=== PATIENT | female | born 1975 | race Hispanic/Latino ===

== ENCOUNTER 2017-11-18 02:45 | Emergency (ER) | payer MEDICAID ==
[2017-11-18 03:21] VITALS: O2SAT 100
[2017-11-18] MEDS ORDERED: Sodium Chloride 0.9% 1,000 ML IV STA (03:41)
--- NOTE | 2017-11-18 03:46 | ED PDOC ---
HPI: Abdomen Time Seen by Provider: 11/18/17 03:22 Chief Complaint (Nursing): Abdominal Pain Chief Complaint (Provider): abdominal pain History Per: Patient History/Exam Limitations: no limitations Onset/Duration Of Symptoms: Days (1) Current Symptoms Are (Timing): Still Present Location Of Pain/Discomfort: RLQ, LLQ, Suprapubic Quality Of Discomfort: Cramping Associated Symptoms: Nausea Additional Complaint(s): 41 y/o female presents for evaluation of lower abdominal cramping x 1 day. Patient states she found out she was 2 weeks ago with a home test; went to a clinic 2 days ago when pain started and had an ultrasound which showed twin that was not viable, measuring approximately 9 weeks. Patient states last night pain intensified, with associated headache and nausea. States headache improved after Excedrin. Patient states she called the "[employer] " hotline and was advised to come to ED for testing. Denies fever, dizziness, vomiting, chest pain, shortness of breath, palpitations, vaginal bleeding/discharge. Patient also states she may have a UTI as her urine has a foul smell. A3 Past Medical History Reviewed: Historical Data, Nursing Documentation, Vital Signs Vital Signs: Last Vital Signs Temp 98.5 F 11/18/17 03:14 Pulse 85 11/18/17 03:14 Resp 16 11/18/17 03:14 BP 114/73 11/18/17 03:14 Pulse Ox 100 11/18/17 05:44 - Medical History PMH: No Chronic Diseases - Surgical History Surgical History: - Family History Family History: States: No Known Family Hx - Home Medications Home Medications: Ambulatory Orders Medication Instructions Recorded Nitrofurantoin Macrocrystals 100 mg PO BID #13 cap 11/18/17 [Macrobid] - Allergies Allergies/Adverse Reactions: Allergies Allergy/AdvReac Type Severity Reaction Status Date / Time No Known Allergies Allergy Verified 11/18/17 03:21 Review of Systems ROS Statement: Except As Marked, All Systems Reviewed And Found Negative Genitourinary Female: Positive for: Pelvic Pain Physical Exam - Reviewed Nursing Documentation Reviewed: Yes Vital Signs Reviewed: Yes - Physical Exam Appears: Positive for: Well, Non-toxic, No Acute Distress Head Exam: Positive for: ATRAUMATIC, NORMAL INSPECTION, NORMOCEPHALIC Skin: Positive for: Normal Color Eye Exam: Positive for: Normal appearance ENT: Positive for: Normal ENT Inspection Cardiovascular/Chest: Positive for: Regular Rate, Rhythm Respiratory: Positive for: Normal Breath Sounds Gastrointestinal/Abdominal: Positive for: Bowel Sounds, Soft, Tenderness (rlq, suprapubic, llq) Pelvic Exam: Positive for: External Exam Normal, No Cerv. Motion Tender, Other ( exam button cutter Gisselle Padilla RN). Negative for: Active Bleeding, Blood, Cervicitis Back: Positive for: Normal Inspection Extremity: Positive for: Normal ROM Neurologic/Psych: Positive for: Alert, Oriented (x3) - Laboratory Results Result Diagrams: 11/18/17 04:05 11/18/17 04:05 - ECG O2 Sat by Pulse Oximetry: 100 - Progress ED Course And Treament: labs, urine, TV OB u/s, IVF, PO tylenol Macrobid PO given for UTI Disposition - Clinical Impression Clinical Impression: UTI (urinary tract infection), Abdominal pain in , Headache - Disposition Disposition Time: 06:00 Condition: STABLE Prescriptions: Nitrofurantoin Macrocrystals [Macrobid] 100 mg PO BID #13 cap Patient Signed Over To: Wero Gee Handoff Comments: pending u/s, re-eval
[2017-11-18 04:24] LABS: BASO % 0.4 % (0.0-2.0); EOS # 0.1 K/uL (0.0-0.7); EOS % 1.9 % (0.0-4.0); HEMOGLOBIN 11.7 g/dL (12.0-16.0); LYMPH # 1.3 K/uL (1.0-4.3); LYMPH % 23.2 % (20.0-40.0); MEAN CELL VOLUME 90.5 fl (81.0-99.0); MEAN CORPUSCULAR HEMOGLOBIN 32.3 pg (27.0-31.0); MEAN CORPUSCULAR HGB CONC 35.7 g/dL (33.0-37.0); MEAN PLATELET VOLUME 7.7 fl (7.2-11.7); MONO # 0.5 K/uL (0.0-0.8); MONO % 9.1 % (0.0-10.0); NEUT # 3.7 K/uL (1.8-7.0); NEUT % 65.4 % (50.0-75.0); NRBC % 0.1 % (0.0-0.0); RBC 3.62 Mil/uL (3.80-5.20); RED CELL DISTRIBUTION WIDTH 13.2 % (11.5-14.5); WHITE BLOOD COUNT 5.7 K/uL (4.8-10.8)
[2017-11-18 04:27] LABS: SQUAMOUS EPITHIAL 8 /hpf (0-5); URINE BACTERIA RARE (<OCC); URINE BILIRUBIN NEGATIVE (NEGATIVE); URINE BLOOD SMALL (NEGATIVE); URINE CLARITY CLOUDY (Clear); URINE COLOR AMBER (YELLOW); URINE GLUCOSE (UA) NEG (Normal); URINE LEUKOCYTE ESTERASE LARGE Leu/uL (Negative); URINE PROTEIN 100 mg/dL (NEGATIVE)
[2017-11-18 04:33] LABS: ALB/GLOB RATIO 1.5 (1.0-2.1); ALBUMIN 4.2 g/dL (3.5-5.0); ALT/SGPT 32 U/L (9-52); AST/SGOT 41 U/L (14-36); BLOOD UREA NITROGEN 11 mg/dl (7-17); CALCIUM 9.5 mg/dL (8.4-10.2); GFR AFRICAN-AMERICAN > 60; GFR NON-AFRICAN AMERICAN > 60
--- NOTE | 2017-11-18 07:04 | ED PDOC ---
- Laboratory Results Result Diagrams: 11/18/17 04:05 11/18/17 04:05 - ECG O2 Sat by Pulse Oximetry: 100 Medical Decision Making Medical Decision Making: received pending US and re-eval. Discussed w Dr Paris OB electronic maintenance supervisor, US results and dimensions discussed, recommends followup in office to determine falling Beta as given size intervention not currently recommended . Results d/w patient. Given followup Dr Duenas as patient initially requested Dr Duenas although has not yet seen. Accession No. 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 COMPARISON: None available. TECHNIQUE: Transvaginal sonography of was performed with transverse and longitudinal projections submitted for interpretation. No prior comparison available. Last which appears reported 09/18/2017 suggesting of 8 weeks 5 days by dates alone. FINDINGS: UTERUS: Measures 11.4 x 9.4 x 6.2 cm. No definite myometrial mass is demonstrated. An apparent twin intrauterine gestation is appreciate which appears to be dichorionic/ diamniotic type. No pole, yolk sac or or amniotic membrane is seen within gestational sac A which measures a mean diameter of 3.59 cm corresponding to 8 weeks 6 day gestational age. Gestational sac B measures a mean 1.26 cm correspond to 5 weeks 3 day gestational age. Yolk sac and pole are identified measuring 0.2 cm and 0.54 cm average at twin B with mean crown-rump length indicating 5 weeks 3 days ultrasound age as well. No cardiac activity is detected within twin B pole. No definite decidual related hemorrhage appreciable. Mean sac diameter referred gestational sac A is concordant with LMP derived dates and discordant with gestational sac B. the overall pattern suggests failure of both gestations , compatible with the clinical history. CERVIX: 4.7 cm, closed internal os. No cervical mass appreciable. RIGHT OVARY: Measures 3.2 x 3.0 x 2.1 cm. No solid mass. Normal flow. Complex cyst is seen in the right ovary measuring 1.6 x 2.2 x 1.4 cm potentially representing a corpus luteum cyst. LEFT OVARY: Measures 3.2 x 3.1 x 1.6 cm. Possible collapsing follicle is seen measuring 1.5 x 1.5 x 1.2 cm with a calcified focus measure 1.1 x 1.1 x 1.1 cm, possibly representing a small dermoid lesion. Normal flow. FREE FLUID: No significant free fluid noted. OTHER FINDINGS: None. IMPRESSION: 1. demise in both of apparent twin intrauterine gestations as discussed above. See details under uterus section above. Clinical correlation and sonographic follow-up are recommended. 2. Probable corpus luteum cyst right ovary with crenating follicle left ovary. A tiny 1.1 cm dermoid lesion is suggests at the left ovary as well. Disposition - Clinical Impression Clinical Impression: UTI (urinary tract infection), Abdominal pain in , Headache, Threatened - POA Present On Arrival: None - Disposition Disposition: Routine/Home Disposition Time: 11:47 Condition: STABLE Additional Instructions: Your case was discussed with Dr Paris on-call Smog Technician who recommends you be seen in office for repeat bloodwork prior to any intervention on possible demise. Return to ER for any worse or new symptoms, fever, pain, bleeding or any concern. Prescriptions: Nitrofurantoin Macrocrystals [Macrobid] 100 mg PO BID #13 cap Instructions: Urinary Tract Infections in Adults, Threatened Miscarriage (DC) Forms: [employer] (Nauruan)
[2017-11-18 08:07] VITALS: TEMP 97.9
--- NOTE | 2017-11-18 11:13 | US ---
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 COMPARISON: None available. TECHNIQUE: Transvaginal sonography of was performed with transverse and longitudinal projections submitted for interpretation. No prior comparison available. Last which appears reported 09/18/2017 suggesting of 8 weeks 5 days by dates alone. FINDINGS: UTERUS: Measures 11.4 x 9.4 x 6.2 cm. No definite myometrial mass is demonstrated. An apparent twin intrauterine gestation is appreciate which appears to be dichorionic/ diamniotic type. No pole, yolk sac or or amniotic membrane is seen within gestational sac A which measures a mean diameter of 3.59 cm corresponding to 8 weeks 6 day gestational age. Gestational sac B measures a mean 1.26 cm correspond to 5 weeks 3 day gestational age. Yolk sac and pole are identified measuring 0.2 cm and 0.54 cm average at twin B with mean crown-rump length indicating 5 weeks 3 days ultrasound age as well. No cardiac activity is detected within twin B pole. No definite decidual related hemorrhage appreciable. Mean sac diameter referred gestational sac A is concordant with LMP derived dates and discordant with gestational sac B. the overall pattern suggests failure of both gestations, compatible with the clinical history. CERVIX: 4.7 cm, closed internal os. No cervical mass appreciable. RIGHT OVARY: Measures 3.2 x 3.0 x 2.1 cm. No solid mass. Normal flow. Complex cyst is seen in the right ovary measuring 1.6 x 2.2 x 1.4 cm potentially representing a corpus luteum cyst. LEFT OVARY: Measures 3.2 x 3.1 x 1.6 cm. Possible collapsing follicle is seen measuring 1.5 x 1.5 x 1.2 cm with a calcified focus measure 1.1 x 1.1 x 1.1 cm, possibly representing a small dermoid lesion. Normal flow. FREE FLUID: No significant free fluid noted. OTHER FINDINGS: None. IMPRESSION: 1. demise in both of apparent twin intrauterine gestations as discussed above. See details under uterus section above. Clinical correlation and sonographic follow-up are recommended. 2. Probable corpus luteum cyst right ovary with crenating follicle left ovary. A tiny 1.1 cm dermoid lesion is suggests at the left ovary as well.
[2017-11-18 11:48] VITALS: BP 107/59; PULSE 81; RESP 14
== END 2017-11-18 12:19 | disposition home or self-care (01) ==
LOC: H.ER 02:45
DX: O20.0 Threatened abortion (principal); O23.40 Unspecified infection of urinary tract in pregnancy, unspecified trimester; R51 Headache
CPT/HCPCS: 76817; 80053; 81003; 81025; 84702; 85025; 86850; 86900; 87086; 87181; 99284; J7030

== ENCOUNTER 2017-11-24 12:37 | Emergency (ER) | payer MEDICAID ==
--- NOTE | 2017-11-24 13:21 | ED PDOC ---
HPI: Abdomen Time Seen by Provider: 11/24/17 13:00 Chief Complaint (Nursing): Abdominal Pain Chief Complaint (Provider): Abdominal Pain History Per: Patient History/Exam Limitations: no limitations Additional Complaint(s): Patient is a 41 y/o female who is presenting to the ED complaining of abdominal pain with associated nausea and vomiting. Patient describes the pain as a sharp cramping sensation. She was seen last week and is potentially now; her US however didn't detect a pulse. Patient was told to follow up with PMD but she has not due to insurance. She was given prescription for Macrobid and states that she is still taking it. Patient reports feeling shaky, subjective fever, sweaty, dizzy, and has a throat pain she describes as "tight." She denies chest pain, back pain, headache, vaginal bleeding, or leg swelling. Abnormal Vaginal Bleeding: No : 7 Para: 3 Miscarriage: 3 Past Medical History Reviewed: Historical Data, Nursing Documentation, Vital Signs Vital Signs: Last Vital Signs Temp 97.8 F 11/24/17 12:42 Pulse 81 11/24/17 12:42 Resp 18 11/24/17 12:42 BP 115/71 11/24/17 12:42 Pulse Ox 99 11/24/17 15:39 - Medical History PMH: No Chronic Diseases - Surgical History Surgical History: - Family History Family History: States: Unknown Family Hx - Social History Current smoker - smoking cessation education provided: Yes (trying to quit) Alcohol: None - Home Medications Home Medications: Ambulatory Orders Medication Instructions Recorded Nitrofurantoin Macrocrystals 100 mg PO BID #13 cap 11/18/17 [Macrobid] - Allergies Allergies/Adverse Reactions: Allergies Allergy/AdvReac Type Severity Reaction Status Date / Time No Known Allergies Allergy Verified 11/24/17 12:43 Review of Systems ROS Statement: Except As Marked, All Systems Reviewed And Found Negative Constitutional: Positive for: Fever (subjective), Sweats ENT: Positive for: Throat Pain (tightness) Cardiovascular: Negative for: Chest Pain Gastrointestinal: Positive for: Nausea, Vomiting, Abdominal Pain (cramping) Musculoskeletal: Negative for: Back Pain Neurological: Positive for: Dizziness. Negative for: Headache Physical Exam - Reviewed Nursing Documentation Reviewed: Yes Vital Signs Reviewed: Yes - Physical Exam Appears: Positive for: Non-toxic, No Acute Distress Head Exam: Positive for: ATRAUMATIC Skin: Positive for: Normal Color, Warm, Dry Eye Exam: Positive for: Normal appearance, EOMI, PERRL Neck: Positive for: Normal, Painless ROM, Supple Cardiovascular/Chest: Positive for: Regular Rate, Rhythm. Negative for: Murmur Respiratory: Positive for: Normal Breath Sounds. Negative for: Respiratory Distress Gastrointestinal/Abdominal: Positive for: Normal Exam, Soft. Negative for: Tenderness Extremity: Positive for: Normal ROM. Negative for: Pedal Edema, Deformity Neurologic/Psych: Positive for: Alert, Oriented. Negative for: Motor/Sensory Deficits - Laboratory Results Result Diagrams: 11/24/17 13:46 11/24/17 13:46 - ECG O2 Sat by Pulse Oximetry: 99 (RA) Pulse Ox Interpretation: Normal Medical Decision Making Medical Decision Making: Time: 13:20 Impression: Abdominal pain Initial Plan: --Type and screen --BMP --beta-HCG --CBC w/ diff ----- Scribe Attestation: Documented by Bryan Varela, acting as a scribe for Marixa Lyles MD. Provider Scribe Attestation: All medical record entries made by the Scribe were at my direction and personally dictated by me. I have reviewed the chart and agree that the record accurately reflects my personal performance of the history, physical exam, medical decision making, and the department course for this patient. I have also personally directed, reviewed, and agree with the discharge instructions and disposition. 3.00p Case d/w Dr. Jean-Baptiste. Today's history and recently ER visit's workup reviewed. Recommends outpatient followup to schedule D&C. Patient advised to return if fever, severe pain or bleeding. Disposition - Clinical Impression Clinical Impression: demise - Patient ED Disposition Is Patient to be Admitted: No Doctor Will See Patient In The: Office Counseled Patient/Family Regarding: Diagnosis, Need For Followup - Disposition Referrals: [facility] [Outside] [facility] [Outside] [facility] [Outside] Perry Swenson DO [Staff Provider] - Disposition: Routine/Home Disposition Time: 15:15 Condition: STABLE Additional Instructions: Return to the ER if you have severe pain or bleeding, fever, vomiting or inability to tolerate food or liquids Instructions: Miscarriage (DC) Forms: ElisabethReplise Soha (Arabic) - POA Present On Arrival: None
[2017-11-24 13:54] LABS: BASO % 0.6 % (0.0-2.0); EOS % 0.5 % (0.0-4.0); HEMOGLOBIN 12.5 g/dL (12.0-16.0); LYMPH # 1.7 K/uL (1.0-4.3); LYMPH % 22.4 % (20.0-40.0); MEAN CELL VOLUME 89.1 fl (81.0-99.0); MEAN CORPUSCULAR HEMOGLOBIN 31.9 pg (27.0-31.0); MEAN CORPUSCULAR HGB CONC 35.8 g/dL (33.0-37.0); MEAN PLATELET VOLUME 7.6 fl (7.2-11.7); MONO # 0.6 K/uL (0.0-0.8); MONO % 7.9 % (0.0-10.0); NEUT # 5.1 K/uL (1.8-7.0); NEUT % 68.6 % (50.0-75.0); RBC 3.91 Mil/uL (3.80-5.20); RED CELL DISTRIBUTION WIDTH 13.1 % (11.5-14.5); WHITE BLOOD COUNT 7.4 K/uL (4.8-10.8)
[2017-11-24 14:13] LABS: BLOOD UREA NITROGEN 10 mg/dl (7-17); CALCIUM 9.5 mg/dL (8.4-10.2); GFR AFRICAN-AMERICAN > 60; GFR NON-AFRICAN AMERICAN > 60
[2017-11-24 16:17] VITALS: BP 109/64; PULSE 68; RESP 16; TEMP 98.3; O2SAT 100
== END 2017-11-24 16:21 | disposition home or self-care (01) ==
LOC: H.ER 12:37
DX: O36.4XX1 Maternal care for intrauterine death, fetus 1 (principal)